=== PATIENT | female | born 1965 | race Caucasian/White ===

== ENCOUNTER 2020-10-29 17:55 | Emergency (ER) | payer OTHER ==
[~2020-10-29] VITALS: Ht 172.7 cm; Wt 78.0 kg
[2020-10-29] MEDS ORDERED: HYDROCO/APAP1 TA9 PO (18:24)
[2020-10-29 18:40] VITALS: BP 138/62
[2020-10-29] MEDS ORDERED: METFORMIN500 M2 PO (18:42)
[2020-10-29] MEDS ORDERED: [UNRECOGNIZED DRUG - REMARK] PO (18:43)
== END 2020-10-29 18:40 | disposition home or self-care (01) | DRG 563 ==
LOC: ED 17:55
PROC: 2W3KX1Z Immobilization of Left Finger using Splint (ICD-10-PCS; principal; 2020-10-29)
DX: S62.613A Displaced fracture of proximal phalanx of left middle finger, initial encounter for closed fracture (principal); E11.9 Type 2 diabetes mellitus without complications; I10 Essential (primary) hypertension; X50.0XXA Overexertion from strenuous movement or load, initial encounter; Y93.K1 Activity, walking an animal; Y92.009 Unspecified place in unspecified non-institutional (private) residence as the place of occurrence of the external cause